=== PATIENT | female | born 2000 | race Caucasian/White ===

== ENCOUNTER 2024-03-21 06:12 | Day surgery (SDC) | payer OTHER, SELFPAY ==
[2024-03-21] VITALS (7 sets, daily range): BP systolic 98–142; BP diastolic 53–99; BMI 44.6
[2024-03-21] MEDS: TYLENOL 1000 MG PO (08:50)
[2024-03-21] MEDS: NORMOSOL-R 1000 IV (08:50)
[2024-03-21] MEDS: DILAUDID 0.25 MG IV (11:19)
== END 2024-03-21 12:47 | disposition home or self-care (01) ==
LOC: SDS 06:12
PROVIDERS: ATTENDING PHYSICIAN Otolaryngology
DX: J35.01 Chronic tonsillitis (principal); J35.8 Other chronic diseases of tonsils and adenoids
CPT/HCPCS: 42826; 88304